=== PATIENT | female | born 1990 | race Caucasian/White ===

== ENCOUNTER 2016-07-27 09:50 | Emergency (ER) | payer BC ==
[2016-07-27] MEDS ORDERED: BSS OPTH.SOL* BTL OPHTHALMIC ONE (11:21)
[2016-07-27] MEDS ORDERED: Fluorescein Sodium TOPICAL* 1 MG TEST OPHTHALMIC ONE (11:21)
--- NOTE | 2016-07-27 11:57 | UC ---
Eye Complaint HPI - HPI Summary HPI Summary: R eye pain, irritation since last night, no light sensitivity. Denies injury or purulent drainage. No young children at home or work. Very sharp sensation, only minimal redness. Feels like the sharpness moves around. - History of Current Complaint Chief Complaint: UCEye Stated Complaint: EYE COMPLAINT Time Seen by Provider: 07/27/16 11:21 Hx Obtained From: Patient Hx Last Menstrual Period: 06/25/16 ?: No Onset/Duration: Gradual Onset, Lasting Hours Timing: Constant Severity Initially: Mild Severity Currently: Moderate Location of Injury: Globe Character: Foreign Body Sensation Aggravating Factor(s): Nothing Associated Signs And Symptoms: Positive: Drainage (Clear). Negative: Photophobia, Vision Impairment Right, Vision Impairment Left - Risk Factors Penetrating Injury Risk Factor: Negative Globe Rupture Risk Factors: Negative Acute Glaucoma Risk Factors: Negative - Allergies/Home Medications Allergies/Adverse Reactions: Allergies Allergy/AdvReac Type Severity Reaction Status Date / Time No Known Allergies Allergy Verified 12/30/15 18:48 PMH/Surg Hx/FS Hx/Imm Hx Previously Healthy: Yes - Surgical History Surgical History: Yes Surgery Procedure, Year, and Place: TONSILS- 1 YRS OF AGE - Family History Known Family History: Positive: Hypertension - Maternal side, Diabetes - both maternal grandparents, Other - Breast CA on paternal side; colon CA on maternal side Family History: NON-CONTRIBUTORY - Social History Occupation: Employed Full-time Alcohol Use: Rare Substance Use Type: None Smoking Status (MU): Never Smoked Tobacco Review of Systems Constitutional: Negative Skin: Negative Eyes: Other - R eye irritation ENT: Negative Respiratory: Negative Cardiovascular: Negative Gastrointestinal: Negative Genitourinary: Negative Motor: Negative Neurovascular: Negative Musculoskeletal: Negative Neurological: Negative Psychological: Negative All Other Systems Reviewed And Are Negative: Yes Physical Exam Triage Information Reviewed: Yes Appearance: Pain Distress - mild, Obese Vital Signs: Initial Vital Signs Temp 98 F 07/27/16 09:53 Pulse 82 07/27/16 09:53 Resp 16 07/27/16 09:53 BP 138/81 07/27/16 09:53 Pulse Ox 100 07/27/16 09:53 Eye Exam: Other - PERRL, no photophobia, EOM-I. Difficulty keeping R eye open. Eyes: Positive: Conjunctiva Clear, Other: - fluorescein test negative for uptake in R eye, R eye upper lid eversion negative for FB or injury/stye ENT Exam: Normal ENT: Positive: Normal ENT inspection, Hearing grossly normal, Pharynx normal, TMs normal Dental Exam: Normal Neck exam: Normal Neck: Positive: Supple, Nontender, No Lymphadenopathy Respiratory Exam: Normal Respiratory: Positive: Chest non-tender, Lungs clear, Normal breath sounds, No respiratory distress, No accessory muscle use Cardiovascular Exam: Normal Cardiovascular: Positive: RRR, No Murmur Musculoskeletal Exam: Normal Neurological Exam: Normal Neurological: Positive: Alert Psychological Exam: Normal Skin Exam: Normal Eye Complaint Course/Dx - Differential Dx/Diagnosis Provider Diagnoses: R eye irritation Discharge - Discharge Plan Condition: Stable Disposition: HOME Prescriptions: Ciprofloxacin 0.3% OPTH.BETH* [Cipro 0.3% Opth*] 2 drop RIGHT EYE QID #5 ml Patient Education Materials: Eye Pain (ED) Referrals: Flip Middleton MD [Medical Doctor] - 3 Days Additional Instructions: Though I do not see a corneal abrasion or a bacterial infection, I have prescribed antibiotic drops because these are very common problems and I may have missed something on exam. If your symptoms significantly worsen over the weekend, especially with fever, visual changes, or marked pain, please go to a major hospital's emergency department. If you are not worse but not doing better by Saturday, please follow up with the rrt listed here.
== END 2016-07-27 11:50 | disposition home or self-care (01) ==
LOC: UCEAST 09:50
DX: H57.8 Other specified disorders of eye and adnexa (principal)
CPT/HCPCS: 99202; A9270-GY; G0463

== ENCOUNTER 2018-06-24 07:18 | Inpatient (IN) | payer BC, OTHER ==
[~2018-06-24 07:18] MED LIST: Buffered Lidocaine 1% SYRIN* 1 ML/SYRINGE INTRADERM ONE; Sodium Citrate/Citric Acid* 15 ML UDC PO ONE
[2018-06-24] MEDS ORDERED: ceFAZolin 1 GM in Dextrose (*) 1 GM/50 ML BAG IVPB ONE (07:40)
[2018-06-24] MEDS ORDERED: Sodium Citrate/Citric Acid* 15 ML UDC ONE (07:40)
[2018-06-24] MEDS ORDERED: ceFAZolin 2 GM PREMIX in ORs 2 GM/50 ML BAG IVPB ONE (07:40)
[2018-06-24] MEDS ORDERED: Heparin VIAL(*) 5000 UNITS/ML VIAL (FIVE THOUSAND) ONE (07:40)
[2018-06-24] MEDS ORDERED: Buffered Lidocaine 1% SYRIN* 1 ML/SYRINGE INTRADERM ONE (08:03)
[2018-06-24] MEDS: Lactated Ringers 1000 ML Bag* 1,000 ML IV SCH ×3 (08:11→18:00)
[2018-06-24] MEDS ORDERED: Bupivacaine 0.25% EPI 200,000* 30 ML SDV ONE (11:59)
[2018-06-24] MEDS ORDERED: fentaNYL* 50 MCG/ML 2 ML VIAL (100 MCG VIAL) ONE ×5 (12:31→15:30)
[2018-06-24] MEDS ORDERED: Lidocaine 2% PF * 5 ML VIAL ONE (12:32)
[2018-06-24] MEDS ORDERED: Propofol* 10 MG/ML 20 ML BTL ONE (12:32)
[2018-06-24] MEDS ORDERED: Rocuronium* 10 MG/ML VIAL ONE ×2 (12:34→13:12)
[2018-06-24] MEDS ORDERED: Ondansetron INJ* 2 MG/ML VIAL ONE (13:03)
[2018-06-24] MEDS ORDERED: Ketorolac INJ* 30 MG/ML 1 ML VIAL ONE (13:03)
[2018-06-24] MEDS ORDERED: Dexamethasone IV* 4 MG/ML 1 ML (4 MG) ONE (13:03)
[2018-06-24] MEDS ORDERED: Sugammadex * 500 MG/5 ML VIAL IV PUSH ONE (13:33)
--- NOTE | 2018-06-24 14:41 | OP ---
Operative Report - Blank - Operative Report Date of Operation: 06/24/18 Note: Brief Operative Note Preop Dx: morbid obesity Postop Dx: same Procedure: laparoscopic sleeve gastrectomy Anesthesia: GET Surgeon: Svetlana Channel Supervisor: CAITLYN Wolff; ALAN Moreno Fluids: 1500 ml RL EBL: < 20 ml Specimen: portion of stomach Drains: none Findings: dictated
[2018-06-24] MEDS ORDERED: HYDROmorphone INJ1* 1 MG/ML SYRINGE IV SLOW PU PRN ×2 (14:42→14:49)
[2018-06-24] MEDS ORDERED: Acetaminophen ADULT LIQ* 650 MG/20.3 ML UDC PO PRN (14:42)
[2018-06-24] MEDS ORDERED: DiMENhydriNATE IV* 50 MG/ML VIAL IV PUSH PRN (14:50)
[2018-06-24] MEDS ORDERED: Naloxone* 0.4 MG/ML 1 ML VIAL IV PRN (14:50)
[2018-06-24] MEDS ORDERED: DiMENhydriNATE IV* 50 MG/ML VIAL ONE (14:51)
[2018-06-24] MEDS: fentaNYL* 50 MCG/ML 2 ML VIAL (100 MCG VIAL) IV PRN ×5 (14:57→15:31)
[2018-06-24] MEDS ORDERED: HYDROmorphone INJ1* 1 MG/ML SYRINGE ONE ×2 (15:45→16:42)
[2018-06-24] MEDS ORDERED: Acetaminophen IV 1GM/100ML * 100 ML ONE (16:45)
[2018-06-24] MEDS ORDERED: Scopolamine 1.5 mg* PATCH ONE (17:49)
[2018-06-24] MEDS: Pantoprazole IV* 40 MG IV SCH (17:58)
[2018-06-24] MEDS: Ketorolac INJ* 30 MG/ML 1 ML VIAL IV PRN (17:58)
[2018-06-24] MEDS ORDERED: Scopolamine 1.5 mg* PATCH TRANSDERM SCH (18:00)
[2018-06-24] MEDS ORDERED: Famotidine IV* 10 MG/ML 2 ML (20 mg) IV SLOW PU SCH (21:00)
[2018-06-24] MEDS: Heparin VIAL(*) 5000 UNITS/ML VIAL (FIVE THOUSAND) SUBCUT SCH (21:19)
[2018-06-25] MEDS: Lactated Ringers 1000 ML Bag* 1,000 ML IV SCH ×3 (00:08→13:25)
[2018-06-25] MEDS: Ondansetron INJ* 2 MG/ML VIAL IV PRN ×3 (05:50→20:47)
[2018-06-25] MEDS: Ketorolac INJ* 30 MG/ML 1 ML VIAL IV PRN ×4 (05:50→20:47)
[2018-06-25] MEDS: Heparin VIAL(*) 5000 UNITS/ML VIAL (FIVE THOUSAND) SUBCUT SCH ×3 (05:53→22:16)
--- NOTE | 2018-06-25 11:29 | PN ---
Progress Note - Progress Note Date of Service: 06/25/18 SOAP: Subjective:pod#1 s/p lap sleeve gastrectomy []tried sips of clears,mild nausea,no vomiting;sleepy,just got Dilaudid for upper abd pain;walked in halls;no dysuria;no flatus Objective: Vital Signs Temp 98.1 F 06/25/18 07:25 Pulse 63 06/25/18 07:25 Resp 18 06/25/18 10:49 BP 118/49 06/25/18 07:25 Pulse Ox 98 06/25/18 08:00 Intake & Output 06/24/18 06/25/18 06/25/18 18:59 06:59 18:59 Intake Total 1960 Output Total 300 500 30 Balance -300 1460 -30 Weight 276 lb Intake: IV Fluids 1959 LR 1960 Oral 0 Output: Urine 300 500 Emesis 30 lungs:clear bilat;heart:RRR;abd:obese,hypoactive bs;lap incisions intact with dressings,appropriate tenderness;ext:nontender calves [] Assessment:nausea and pain management pod#1 s/p lap sleeve [] Plan:IV fluids, start rosendo clears;ambulate;pain management;inspiron;reassess this afternoon []
[2018-06-25] MEDS: D5W 1/2 NS KCl 20 Meq 1000 ML* 1,000 ML IV SCH (16:13)
[2018-06-25] MEDS: Pantoprazole IV* 40 MG IV SCH (18:23)
[2018-06-26] MEDS: D5W 1/2 NS KCl 20 Meq 1000 ML* 1,000 ML IV SCH ×3 (00:17→18:07)
[2018-06-26] MEDS: Ondansetron INJ* 2 MG/ML VIAL IV PRN ×4 (04:04→22:34)
[2018-06-26] MEDS: Ketorolac INJ* 30 MG/ML 1 ML VIAL IV PRN ×2 (04:04→10:20)
[2018-06-26] MEDS: Heparin VIAL(*) 5000 UNITS/ML VIAL (FIVE THOUSAND) SUBCUT SCH ×3 (06:00→21:26)
--- NOTE | 2018-06-26 09:21 | PN ---
Progress Note - Progress Note Date of Service: 06/26/18 Note: S: POD #2. Still having sig spasms (central chest) that come and go. Seem to be less when she is upright and/or walking. Not using much pain medication. Did have some nausea and small amt of emesis at 0400 today. No flatus or BM. O: Vital Signs - 8 hr 06/26/18 06/26/18 06/26/18 03:56 04:27 07:23 Temperature 97.3 F Pulse Rate 66 63 Respiratory 17 20 Rate Blood Pressure 137/58 130/53 (mmHg) O2 Sat by Pulse 97 97 100 Oximetry 06/26/18 08:00 Temperature Pulse Rate Respiratory Rate Blood Pressure (mmHg) O2 Sat by Pulse 100 Oximetry Intake and Output Last 24 Hours 06/24/18 06/25/18 06/26/18 06/27/18 06:59 06:59 06:59 06:59 Intake Total 1960 2650 990 Output Total 800 1080 Balance 1160 1570 990 Weight 276 lb Intake: IV Fluids 1959 2380 990 D5W 1/2 NS 20 meq KCL 990 990 LR 1960 1390 Oral 0 270 Output: Urine 800 1050 Emesis 30 Other: # Bowel Movements 0 Gen: lying in bed w/ occ paroxysms of central chest pain, that seem to pass quickly Heart: reg Lungs: clear Abd: +BS; incision sites ok; soft; moderate tenderness at subxiphoid and RUQ incisions (expected). A: s/p lap sleeve gastrectomy w/ slow improvement P: cont IVF until po intake improves; poss d/c later today vs 06/27; consideration of UGI if she is unable to increase her intake?
--- NOTE | 2018-06-26 15:06 | OP ---
CC: Kalee Doherty MD; [facility] * DATE OF OPERATION: 06/24/18 - ROOM #353 DATE OF : 86 SURGEON: Luis Mota MD FRONT MAN: CAITLYN Ashton ANESTHESIOLOGIST: José Luis Briggs DO ANESTHESIA: General endotracheal. PRE-OP DIAGNOSIS: Clinically severe obesity. POST-OP DIAGNOSIS: Clinically severe obesity. OPERATIVE PROCEDURE: Laparoscopic sleeve gastrectomy. ESTIMATED BLOOD LOSS: Less than 20 mL IV FLUIDS: 1.5 L crystalloids SPECIMENS: Portion of stomach. DRAINS: None. COMPLICATIONS: None. COUNTS: The instrument, needle, and sponge counts were correct. DESCRIPTION OF PROCEDURE: The patient was brought to the operating room and placed on the table supine. Sequential compression devices were placed on both lower extremities. General anesthesia was administered. The abdomen was prepped and draped in usual sterile fashion. She received appropriate intravenous antibiotics. After time-out was performed, local anesthetic was infiltrated into the skin and soft tissue. The entry into the abdomen was created through a left upper quadrant incision accommodating a 5 mm optical trocar. After accessing the peritoneal cavity, carbon dioxide was insufflated to a pressure of 15 mmHg. Under direct visualization, additional 12 mm bladeless trocars were placed in the supraumbilical midline and in the right upper quadrant. A 5-mm trocar was placed in the left upper quadrant laterally. A Araseli liver retractor was placed percutaneously in the subxiphoid position and used to elevate the left lobe of the liver. The liver did appear to be fatty infiltrative. The gastric anatomy appeared normal. The pylorus was identified and 6 cm proximal to this, the greater curvature was skeletonized with the LigaSure and the surgery proceeded dividing all the short gastric vessels as well as the posterior short gastric vessels up to the left crease of the diaphragm. Having assured no injury to the spleen, the sleeve gastrectomy was then performed over a 40-Sami bougie using several firings of the Endo-SHABANA stapler with purple reinforced cartridges. Most of the stomach was divided. The specimen was retrieved through the right upper quadrant with the retrieval bag. The wound had been enlarged to remove the specimen and site was closed in the single interrupted 0 Vicryl suture incorporating the muscle and fascia in one layer with the Endoclose device. Subsequently, the Araseli liver retractor was removed under direct visualization. The staple line was noted to be intact and hemostasis was excellent. The ports were removed and the carbon dioxide was released. The incisions were closed with 4-0 Monocryl in a subcuticular fashion to approximate the skin. Steri-Strips and dressings were applied. The patient tolerated this procedure well. She was extubated and transferred to recovery room in stable condition. [id number]/[facility] #: [id number] JEMMA
--- NOTE | 2018-06-26 15:11 | PN ---
Progress Note - Progress Note Date of Service: 06/26/18 Note: S: POD#2, still c/o an intermittent mid-sternal "knotty" feeling in her chest that lasts several seconds and resolves. She states her abd pain is minimal and is being controlled well with Toradol. She has not had to use any stronger medication for pain since last night. She continues to ambulate around the unit and has not produced any flatus or BM today. She has been able to hold down small amounts of PO fluid. She feels slightly nauseous but has not vomited today. O: Selected Entries 06/25/18 06/26/18 06/26/18 19:45 03:56 15:29 Temperature 99.4 F 97.3 F 98.2 F Pulse Rate 61 66 56 Respiratory 18 17 18 Rate Blood Pressure 138/64 137/58 116/59 (mmHg) O2 Sat by Pulse 99 97 100 Oximetry Patient on Room Yes Yes Yes Air Intake & Output 06/24/18 06/25/18 06/26/18 06/27/18 06:59 06:59 06:59 06:59 Intake Total 1960 2650 1230 Output Total 800 1080 500 Balance 1160 1570 730 Weight 276 lb Intake: IV Fluids 1960 2380 990 D5W 1/2 NS 20 meq KCL 990 990 LR 1960 1390 Oral 0 270 240 Output: Urine 800 1050 500 Emesis 30 Other: # Bowel Movements 0 Exam: Gen: lying on left side in bed in no acute distress but does have some discomfort upon shifting positions in bed. CV: normal S1/S2 Lungs: clear & equal bilat, no wheezes, rales, rhonchi abd: surgical sites healing well with no signs of infection, abd tenderness on palpation near surgical sites, bowel sounds hypoactive ext: no pedal edema or calf tenderness. A: POD#2 s/p sleeve gastrectomy, improving. P: continue toradol as prescribed for pain, IV fluids to maintain hydration, continue to drink PO fluids as tolerated, continue to ambulate as tolerated
[2018-06-26] MEDS: HYDROcodone/ACET. 7.5/325 LIQ* 15 ML UDC PO PRN ×2 (16:38→22:34)
[2018-06-26] MEDS: Pantoprazole IV* 40 MG IV SCH (16:40)
[2018-06-27] MEDS: D5W 1/2 NS KCl 20 Meq 1000 ML* 1,000 ML IV SCH (02:06)
[2018-06-27] MEDS: Ondansetron INJ* 2 MG/ML VIAL IV PRN (05:04)
[2018-06-27] MEDS: HYDROcodone/ACET. 7.5/325 LIQ* 15 ML UDC PO PRN (05:04)
[2018-06-27] MEDS: Heparin VIAL(*) 5000 UNITS/ML VIAL (FIVE THOUSAND) SUBCUT SCH (05:08)
[2018-06-27 07:34] VITALS: BP 117/53
--- NOTE | 2018-06-27 11:57 | PN ---
Progress Note - Progress Note Date of Service: 06/27/18 Note: S: POD #2. Doing better. Deon rosendo clears well. Still occasional spasms of pain w / assoc nausea, but no vomiting. Has still used Zofran prn. Passing flatus. No BM. Seen earlier this a.m. by Dr. Mota. O: Vital Signs - 8 hr 06/27/18 06/27/18 06/27/18 03:59 05:04 07:28 Temperature 98.3 F 97.4 F Pulse Rate 60 60 Respiratory 18 16 18 Rate Blood Pressure 117/64 117/53 (mmHg) O2 Sat by Pulse 96 97 Oximetry 06/27/18 06/27/18 07:35 08:00 Temperature Pulse Rate Respiratory 16 18 Rate Blood Pressure (mmHg) O2 Sat by Pulse 97 Oximetry Intake and Output Last 24 Hours 06/25/18 06/26/18 06/27/18 06/28/18 06:59 06:59 06:59 06:59 Intake Total 1960 2650 4170 900 Output Total 800 1080 1825 Balance 1160 1570 2345 900 Weight 276 lb Intake: IV Fluids 1959 2380 2970 900 D5W 1/2 NS 20 meq KCL 990 2970 900 LR 1960 1390 Oral 0 270 1200 Output: Urine 800 1050 1825 Emesis 30 Other: # Bowel Movements 0 0 Gen: appears comfortable Heart: reg Lungs: clear Abd: lap sites clean, dry; no s/sx of infection; steris intact; soft; min incisional tenderness A: s/p lap sleeve gastrectomy, improving P: okay for d/c home; instructions reviewed; see d/c summary
--- NOTE | 2018-06-27 13:16 | DS ---
CC: Dr. Doherty; [facility]* DISCHARGE SUMMARY: DATE OF ADMISSION: 06/24/18 DATE OF DISCHARGE: 06/27/18 ATTENDING SURGEON: Dr. Luis Mota* (CAITLYN Ashton dictating). HOSPITAL COURSE: Please refer to admission history and physical and operative note for details. The patient was admitted on 06/24/18, at which time she underwent laparoscopic sleeve gastrectomy with Dr. Mota. The surgery itself was uneventful. She did however experience a significant pain, primarily in the substernal area immediately postop and for the next 48 hours. This was felt to be most likely esophageal spasm and her vital signs remained stable. Her intake of bariatric clear liquid was still subpar for the first 2 days, but improved significantly in the latter part postop day 2. It was felt by the morning of discharge that her oral intake was adequate and that her pain control was also adequate with oral pain medications. PHYSICAL EXAMINATION: See separate progress note from the same date. IMPRESSION: Status post laparoscopic sleeve gastrectomy, doing well. PLAN: Home today. She will resume her usual home medications (see separate medication reconciliation form). In addition, she already is prescribed hydrocodone/APAP Elixir, which she will use for moderately severe pain. In addition, she may use Tylenol and/or ibuprofen p.r.n. for [id number] pain. She was also prescribed Zofran 4 mg ODT q.6 hours p.r.n. for nausea. Activity and dietary instructions were reviewed. She also has these in written form. She already has an appointment scheduled for followup at the [facility] for metabolic and bariatric surgery next week. CAITLYN ASHTON [id number]/[facility] #: [id number] MTDD
[2018-06-27] MEDS ORDERED: Scopolamine PATCH Remove* 1 NOTE MISC PATCH OFF SCH (18:00)
== END 2018-06-27 10:30 | disposition home or self-care (01) | DRG 403 ==
LOC: AA 07:18 → SSU 17:36
PROVIDERS: ADMIT Surgery; ATTEND Surgery
PROC: 0DB64Z3 Excision of Stomach, Percutaneous Endoscopic Approach, Vertical (ICD-10-PCS; principal; 2018-06-24 09:15)
DX: E66.01 Morbid (severe) obesity due to excess calories (principal); K21.9 Gastro-esophageal reflux disease without esophagitis; K22.4 Dyskinesia of esophagus; R11.2 Nausea with vomiting, unspecified; Z68.43 Body mass index [BMI] 50.0-59.9, adult
CPT/HCPCS: 43775; 88307; A9270-GY; J0690; J1100; J1170; J1240; J1644; J1885; J2405; J2704; J3010

== ENCOUNTER 2018-07-20 17:36 | Emergency (ER) | payer OTHER ==
[2018-07-20] MEDS ORDERED: Thiamine IV* 100 MG, Folic Acid IV* 1 MG, Multiple Vitamin IV ADULT* 10 ML in NS 0.9% 1... IV ONE (20:35)
--- NOTE | 2018-07-20 20:35 | ED ---
Dizziness - HPI Summary HPI Summary: Patient is a 27 y/o F with Hx of gastric sleeve surgery 3 weeks ago presenting to ED with complaints of dizziness. She reports daily, intermittent light- headedness for the past three weeks with an exacerbation today. Patient notes that previously, she had been experiencing some light-headedness whenever she stood up. However, today, Sx are reported to have worsened, with the patient stating she had been near syncopal, fatigued, light-headed and dizzy throughout most of today. Per triage, "Also c/o nausea with some dry heaving" and "Denies cp, sob". Patient states that she has been drinking around 64 oz fluids daily but notes that her lips still feel dry and she believes that she is not producing as much urine as she should be. She states that she had previously been having issues with esophageal spasms and notes that she is frequency gassy. Patient notes that she has been having difficulty with eating solid foods as well. On triage, pain is denied, nothing is noted to aggravate/ alleviate Sx. Home medications and allergies are reviewed. - History Of Current Complaint Chief Complaint: EDDizziness Stated Complaint: LIGHTHEADED,DIZZY PER PT Time Seen by Provider: 07/20/18 20:11 Hx Obtained From: Patient Onset/Duration: Still Present Timing: Weeks Severity Currently: None Character: Lightheaded, Weak, Dizzy Aggravating Factor(s): Other - standing up Alleviating Factor(s): Nothing Associated Signs And Symptoms: Positive: Nausea, Vomiting - dry heaving, Other: - positive - gasseous, difficulty eating solid food, esophageal spasms, dry lips , decreased urine output. Negative: Chest Pain, SOB - Allergies/Home Medications Allergies/Adverse Reactions: Allergies Allergy/AdvReac Type Severity Reaction Status Date / Time No Known Allergies Allergy Verified 07/20/18 17:42 PMH/Surg Hx/FS Hx/Imm Hx Endocrine/Hematology History: Denies: Hx Bone Marrow Disease, Hx Diabetes, Hx Sickle Cell Disease, Hx Thyroid Disease, Hx Anemia Cardiovascular History: Denies: Hx Angina, Hx Cardiomegaly, Hx Congestive Heart Failure, Hx Coronary Artery Disease, Hx Hypertension, Hx Pacemaker/ICD, Hx Peripheral Vascular Disease, Hx Rheumatic Fever, Hx Valvular Heart Disease, Other Cardiovascular Problems/Disorders Respiratory History: Denies: Hx Asthma, Hx Chronic Obstructive Pulmonary Disease (COPD), Hx Pulmonary Edema, Hx Pulmonary Embolism, Hx Sleep Apnea, Other Respiratory Problems/Disorders GI History: Reports: Hx Gastroesophageal Reflux Disease, Other GI Disorders - MORBID OBESITY BMI 50.1 Denies: Hx Ulcer History: Denies: Hx Kidney Infection, Hx Kidney Stones Musculoskeletal History: Reports: Other Musculoskeletal History - CHRONIC BACK AND RIGHT KNEE PAIN, OLD INJURIES Sensory History: Denies: Hx Cataracts, Hx Contacts or Glasses, Hx Glaucoma, Hx Hearing Aid Opthamlomology History: Denies: Hx Cataracts, Hx Contacts or Glasses, Hx Glaucoma Psychiatric History: Reports: Hx Anxiety, Hx Depression Denies: Hx Attention Deficit Hyperactivity Disorder, Hx Eating Disorder, Hx Panic Disorder, Hx Post Traumatic Stress Disorder, Hx Inpatient Treatment, Hx Community Mental Health Tx, Hx Schizophrenia, Hx Bipolar Disorder, Hx Suicide Attempt, Hx of Violent Episodes Against Others, Hx Substance Abuse, Other Psychiatric Issues/Disorders - Cancer History Hx Chemotherapy: No - Surgical History Surgery Procedure, Year, and Place: TONSILS- 1 YRS OF AGE Hx Anesthesia Reactions: No Infectious Disease History: No Infectious Disease History: Denies: Hx Clostridium Difficile, Hx Hepatitis, Hx Human Immunodeficiency Virus (HIV), Hx of Known/Suspected MRSA, Hx Shingles, Hx Tuberculosis, Hx Known/ Suspected VRE, Hx Known/Suspected VRSA, History Other Infectious Disease, Traveled Outside the [place] in Last 30 Days - Family History Known Family History: Positive: Hypertension - Maternal side, Diabetes - both maternal grandparents, Other - Breast CA on paternal side; colon CA on maternal side - Social History Alcohol Use: Rare Alcohol Amount: 1 DRINK/MONTH Substance Use Type: Reports: None Smoking Status (MU): Never Smoked Tobacco Have You Smoked in the Last Year: No Review of Systems ENT: Other - POSITIVE - DRY LIPS Negative: Chest Pain Negative: Shortness Of Breath Gastrointestinal: Other - POSITIVE - ESOPHAGEAL SPASMS, DIFFICULTY WITH SOLIDS Positive: Vomiting - DRY HEAVING , Nausea Genitourinary: Other - POSITIVE - GASSY, DECREASD URINE OUTPUT Neurological: Other - POSITIVE - DIZZINESS All Other Systems Reviewed And Are Negative: Yes Physical Exam - Summary Physical Exam Summary: VITAL SIGNS: Reviewed. GENERAL: Patient is a well-developed and nourished female who is lying comfortable in the stretcher. Patient is not in any acute respiratory distress. HEAD AND FACE: No signs of trauma. No ecchymosis, hematomas or skull depressions. No sinus tenderness. EYES: PERRLA, EOMI x 2, No injected conjunctiva, no nystagmus. EARS: Hearing grossly intact. Ear canals and tympanic membranes are within normal limits. MOUTH: Oropharynx within normal limits. NECK: Supple, trachea is midline, no adenopathy, no JVD, no carotid bruit, no c- spine tenderness, neck with full ROM CHEST: Symmetric, no tenderness at palpation LUNGS: Clear to auscultation bilaterally. No wheezing or crackles. CVS: Regular rate and rhythm, S1 and S2 present, no murmurs or gallops appreciated. ABDOMEN: Soft, non-tender. No signs of distention. No rebound no guarding, and no masses palpated. Bowel sounds are normal. EXTREMITIES: FROM in all major joints, no edema, no cyanosis or clubbing. NEURO: Alert and oriented x 3. No acute neurological deficits. Speech is normal and follows commands. SKIN: Dry and warm Triage Information Reviewed: Yes Vital Signs On Initial Exam: Initial Vitals Temp Pulse Resp BP Pulse Ox 97.9 F 88 16 124/79 97 07/20/18 17:38 07/20/18 17:38 07/20/18 17:38 07/20/18 17:38 07/20/18 17:38 Vital Signs Reviewed: Yes Diagnostics - Vital Signs Vital Signs Temp Pulse Resp BP Pulse Ox 07/20/18 19:49 98.4 F 85 17 136/78 98 07/20/18 17:38 97.9 F 88 16 124/79 97 - Laboratory Result Diagrams: 07/20/18 20:44 07/20/18 20:44 Lab Statement: Any lab studies that have been ordered have been reviewed, and results considered in the medical decision making process. Re-Evaluation - Re-Evaluation First Eval Re-Evaluation Time: 22:02 Comment: Nurse reported that the patient was not orthostatic. Results of labs and tests were discussed with patient. She will be discharged to home to follow up with PCP and her surgeon, Dr. Mota. Strict return precautions given. Patient is agreeable with this plan. Dizzy Course/Dx - Course Course Of Treatment: Patient is a 27 y/o F with Hx of gastric sleeve surgery 3 weeks ago presenting to ED with complaints of dizziness. She reports daily, intermittent light-headedness for the past three weeks with an exacerbation today. Patient notes that previously, she had been experiencing some light- headedness whenever she stood up. However, today, Sx are reported to have worsened, with the patient stating she had been near syncopal, fatigued, light- headed and dizzy throughout most of today. Per triage, "Also c/o nausea with some dry heaving" and "Denies cp, sob". Patient states that she has been drinking around 64 oz fluids daily but notes that her lips still feel dry and she believes that she is not producing as much urine as she should be. She states that she had previously been having issues with esophageal spasms and notes that she is frequency gassy. Patient notes that she has been having difficulty with eating solid foods as well. Physical exam is unremarkable. Labs showed RBC 5.29, MCV 75, MCH 25, RDW 17, potassium 3.4, BUN/creatinine ratio 22.4, TSH 4.25, Beta HCG < 0.60. During ED course, patient received banana bag, 1011.2 mls @ 500 mls/hr IV and potassium chloride 40 meq PO. Nurse reported that the patient was not orthostatic. Results of labs and tests were discussed with patient. She will be discharged to home to follow up with PCP and her surgeon, Dr. Mota. Strict return precautions given. Patient is agreeable with this plan. - Diagnoses Provider Diagnoses: Dizziness, Dehydration Discharge - Sign-Out/Discharge Documenting (check all that apply): Patient Departure - discharge Patient Received Moderate/Deep Sedation with Procedure: No - Discharge Plan Condition: Stable Disposition: HOME Patient Education Materials: Dehydration (ED), Dizziness (ED) Referrals: Kalee Doherty MD [Primary Care Provider] - 3 Days Luis Mota MD [Medical Doctor] - 3 Days Additional Instructions: PLEASE RETURN TO THE ED IMMEDIATELY FOR WORSENING OR CONCERNING SYMPTOMS. FOLLOW UP WITH YOUR PRIMARY CARE PHYSICIAN AND DR. MOTA WITHIN THREE DAYS. - Attestation Statements Document Initiated by Scribe: Yes Documenting Scribe: RAMÓN VALENZUELA Provider For Whom Rylandibe is Documenting (Include Credential): BRADLEY LECHUGA MD Scribe Attestation: RAMÓN Amin, scribed for BRADLEY LECHUGA MD on 06/09/19 at 2218. Status of Scribe Document: Ready
[2018-07-20 20:57] LABS: ABS Eosinophils 0.1 10^3/ul (0-0.6); ABS Lymphocytes 1.4 10^3/ul (1.0-4.8); ABS Monocytes 0.4 10^3/ul (0-0.8); ABS Neutrophils 2.8 10^3/ul (1.5-7.7); Eosinophil % 1.7 %; Hematocrit 40 % (35-47); Lymphocyte % 29.6 %; Mean Corpuscular HGB Conc 33 g/dL (31-36); Mean Corpuscular Hemoglobin 25 pg (27-31); Mean Corpuscular Volume 75 fL (80-97); Mean Platelet Volume 8.9 fL (7.4-10.4); Nucleated Red Blood Cells % 0.2; Platelet Count 287 10^3/uL (150-450); Red Blood Count 5.29 10^6 /uL (3.70-4.87); Red Cell Distribution Width 17 % (10-15); White Blood Count 4.8 10^3/uL (3.5-10.8)
[2018-07-20 21:09] LABS: ALT 28 U/L (7-52); AST 21 U/L (13-39); Albumin 4.5 g/dL (3.2-5.2); Albumin/Globulin Ratio 1.7 (1-3); Alkaline Phosphatase 61 U/L (34-104); Anion Gap 9 mmol/L (2-11); BUN/Creatinine Ratio 22.4 (8-20); Blood Urea Nitrogen 19 mg/dL (6-24); CO2 Carbon Dioxide 26 mmol/L (22-32); Chloride 104 mmol/L (101-111); EGFR African American 95.7 (>60); EGFR Non-African American 79.1 (>60); Globulin 2.7 g/dL (2-4); Glucose 79 mg/dL (70-100); Potassium 3.4 mmol/L (3.5-5.0); Sodium 139 mmol/L (135-145); Total Protein 7.2 g/dL (6.4-8.9)
[2018-07-20 21:16] LABS: HCG Pregnancy < 0.60 mIU/mL
[2018-07-20 21:49] LABS: TSH (Thyroid Stimulating Horm) 4.25 mcIU/mL (0.34-5.60)
[2018-07-20] MEDS ORDERED: Potassium Chloride* LIQUID 20 MEQ/15 ML UDC PO ONE (22:05)
[2018-07-20 23:08] VITALS: BP 133/89
== END 2018-07-20 23:07 | disposition home or self-care (01) ==
LOC: ED 17:36
DX: R42 Dizziness and giddiness (principal); E86.0 Dehydration; Z32.02 Encounter for pregnancy test, result negative; Z98.84 Bariatric surgery status; G89.29 Other chronic pain; M54.9 Dorsalgia, unspecified; M25.561 Pain in right knee
CPT/HCPCS: 36415; 80053; 83735; 84443; 84702; 85025; 96365; 99284; A9270-GY; J3411